=== PATIENT | male | born 1990 | race Caucasian/White ===

== ENCOUNTER 2021-06-19 10:21 | Emergency (ER) | payer OTHER ==
[2021-06-19] MEDS ORDERED: Adacel Vial IM ONE (10:31)
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
[2021-06-19 11:33] LABS: Absolute Neutrophil Ct (ANC) 7.56 (1.4-6.9); Basophil (Absolute #) 0.03 (0-0.4); Eosinophil % 0.8 % (0.00-5.0); Eosinophil (Absolute #) 0.08 (0-0.5); Hematocrit 47.7 % (42-50); Hemoglobin 15.9 gm/dl (12.5-18.0); Lymphocyte (Absolute #) 1.35 (1.0-4.6); Lymphocytes % 13.9 % (24.0-44.0); Mean Cell Volume 85.2 fl (78-100); Mean Corpuscular Hemoglobin 28.4 pg (26-32); Mean Corpuscular Hgb Concent. 33.3 g/dl (32-36); Mean Platelet Volume 9.3 fl (7.5-11.0); Monocytes % 7.2 % (0.0-12.0); Neutrophil % 77.8 % (36.0-66.0); Platelet Count 360 K/mm3 (150-450); Red Cell Distribution Width 13.5 % (11.5-14.0); White Blood Count 9.7 K/mm3 (4.0-10.5)
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
[2021-06-19 11:42] LABS: ALBUMIN 4.4 g/dL (3.5-5.0); ALKALINE PHOSPHATASE 76 U/L (38-126); ANION GAP 14.8 MEQ/L (5-15); BLOOD UREA NITROGEN 14 mg/dL (9-20); CHLORIDE 105 mmol/L (98-107); Calcium 9.3 mg/dL (8.4-10.2); Carbon Dioxide 23 mmol/L (22-30); Creatinine 1 0.83 mg/dL (0.66-1.25); EST GLOMERULAR FILTRATION RATE > 60.0 ML/MIN; Glucose 107 mg/dL (74-106); LIPASE 130 U/L (23-300); Potassium 4.2 mmol/L (3.5-5.1); SGOT/AST 28 U/L (17-59); SGPT/ALT 31 U/L (0-50); SODIUM 138 mmol/L (137-145); Total Protein 7.8 g/dL (6.3-8.2)
[2021-06-19 12:10] LABS: Appearance SLIGHTLY CLOUDY (CLEAR); Bilirubin NEGATIVE (NEGATIVE); Blood NEGATIVE Ery/ul (0-5); Glucose NEGATIVE (NEGATIVE); Ketones NEGATIVE (NEGATIVE); Leukocyte Esterase NEGATIVE (NEGATIVE); Mucus SLIGHT /HPF (NEGATIVE); Nitrite NEGATIVE (NEGATIVE); Protein,Urine Dip 30 (Negative); Specific Gravity 1.025 (1.005-1.025); Urobilinogen 2 mg/dL (0-1)
[2021-06-19] MEDS ORDERED: BACIGUENT PACKET TP ONE (12:34)
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
[2021-06-19] MEDS ORDERED: CLEOCIN 150 MG CAPSULE PO ONE (12:35)
[2021-06-19 13:10] VITALS: BP 132/88; PULSE 118; O2SAT 96
[2021-06-19] MEDS ORDERED: BACIGUENT PACKET ONE (13:22)
[2021-06-19] MEDS ORDERED: CLEOCIN 150 MG CAPSULE ONE (13:22)
== END 2021-06-19 13:34 | disposition home or self-care (01) ==
LOC: ED 10:21
DX: S62.647A Nondisplaced fracture of proximal phalanx of left little finger, initial encounter for closed fracture (principal); S61.412A Laceration without foreign body of left hand, initial encounter; S00.33XA Contusion of nose, initial encounter; S00.03XA Contusion of scalp, initial encounter; V43.63XA Car passenger injured in collision with pick-up truck in traffic accident, initial encounter; Y92.411 Interstate highway as the place of occurrence of the external cause; Q24.9 Congenital malformation of heart, unspecified
CPT/HCPCS: 12042; 36415; 70450; 70486; 71046; 72125; 73130; 80053; 81001; 83690; 85025; 99285; A9270-GY